=== PATIENT | female | born 1975 | race Caucasian/White ===

== ENCOUNTER 2019-12-21 17:33 | Inpatient (IN) | payer MEDICAID, SELFPAY ==
[~2019-12-21] VITALS: Ht 165.1 cm; Wt 72.1 kg
[2019-12-21] MEDS ORDERED: ACETAMINOPHEN ES 500 MG TABLET PO ONE (19:00)
[2019-12-21] MEDS ORDERED: IV NS 0.9% 1,000 ML BAG IV ONE (19:00)
--- NOTE | 2019-12-21 19:30 | NUR ---
ASSUMED CARE FOR PT AT THIS TIME. PT RESTING COMFORTABLY IN BED. IV INITIATED L FOREARM 20G. LABS DRAWN FROM SITE, CRIMINAL JUSTICE TEACHER AT BEDSIDE FOR COLLECTION. IV INTACT AND PATENT, PLACED ON SALINE LOCK. PT MEDICATED PER MD ORDER. WILL CONTINUE TO MONITOR
[2019-12-21] MEDS ORDERED: ACETAMINOPHEN ES 500 MG TABLET ONE (19:46)
[2019-12-21 19:58] LABS: BASOPHILS % (AUTO) 0.1 % (0.0-2.0); EOSINOPHILS % (AUTO) 2.6 % (0.0-6.0); HEMATOCRIT 28 % (33-45); HEMOGLOBIN 9.3 g/dL (11.5-14.8); LYMPHOCYTES # (AUTO) 1.9 /CMM (0.8-4.8); LYMPHOCYTES % (AUTO) 24.6 % (20.0-44.0); MEAN CORPUSCULAR HGB CONC 33 g/dl (31.0-36.0); MEAN CORPUSCULAR VOLUME 82 fL (82-100); MONOCYTES # (AUTO) 0.5 /CMM (0.1-1.30); MONOCYTES % (AUTO) 6.6 % (2.0-12.0); NEUTROPHILS % (AUTO) 66.1 % (43.0-81.0); PLATELET COUNT (AUTO) 319 /CMM (150-450); RED BLOOD CELL COUNT(AUTO) 3.38 MIL/uL (4.0-5.2); WHITE BLOOD COUNT (AUTO) 7.6 K/uL (4.3-11.0)
[2019-12-21 20:06] LABS: CALCIUM, SERUM 8.7 mg/dL (8.5-10.1); CREATININE 0.8 mg/dL (0.6-1.3); POTASSIUM 3.3 mmol/L (3.5-5.1)
[2019-12-21 20:12] LABS: ALBUMIN 2.7 g/dL (3.4-5.0); BILIRUBIN,TOTAL 0.3 mg/dL (0.2-1.0); TOTAL PROTEIN, SERUM 7.9 g/dL (6.4-8.2)
[2019-12-21] MEDS ORDERED: PIPERACILLIN /TAZOBACTAM 3.375 G in IV D5W 50 ML IV ONE (20:30)
[2019-12-21] MEDS ORDERED: VANCOMYCIN 1 GM in IV D5W 250 ML IV ONE (20:30)
--- NOTE | 2019-12-21 20:30 | NUR ---
DUPLEX TECH AT BEDSIDE
--- NOTE | 2019-12-21 20:35 | NUR ---
AUTO CLUB TRAVEL COUNSELOR AT BEDSIDE FOR BLOOD DRAW
[2019-12-21] MEDS ORDERED: PIPERACILLIN /TAZOBACTAM 3.375 G VIAL IV ONE (20:39)
[2019-12-21] MEDS ORDERED: VANCOMYCIN 1 GM VIAL ONE (20:39)
--- NOTE | 2019-12-21 20:56 | NUR ---
RADIOLOGY AT BEDSIDE FOR CXR
--- NOTE | 2019-12-21 21:28 | NUR ---
COVID SWAB COLLECTED AND SENT TO LAB
--- NOTE | 2019-12-21 21:33 | NUR ---
REPORT GIVEN TO KISHORE HAYNES FOR ANETA
--- NOTE | 2019-12-21 21:49 | NUR ---
PT TRANSFERRED PER ACLS PROTOCOL
[2019-12-21] MEDS ORDERED: ONDANSETRON HCL/PF 4 MG/2 ML VIAL IVP PRN (22:00)
[2019-12-21] MEDS ORDERED: VANCOMYCIN 1 GM in IV NS 0.9% 250 ML IV SCH (22:00)
[2019-12-21] MEDS ORDERED: Z GUARD REMEDY 2 OZ OINT TP PRN (22:00)
[2019-12-21] MEDS ORDERED: ACETAMINOPHEN 325 MG TABLET PO PRN (22:00)
[2019-12-21] MEDS ORDERED: MAG HYDROX/AL HYDROX/SIMETH 30 ML UDC PO PRN (22:00)
[2019-12-21] MEDS ORDERED: MAGNESIUM HYDROXIDE 30 ML UDC PO PRN (22:00)
[2019-12-21] MEDS ORDERED: HYDROCODONE/APAP 5/325MG TABLET PO PRN (22:00)
[2019-12-21] MEDS ORDERED: DEXTROSE 50%-WATER 50 ML DISP.SYRIN IV PRN (22:00)
[2019-12-21] MEDS: BLOOD SUGAR DIAGNOSTIC 1 EACH STRIP IN SCH (22:00)
[2019-12-21 22:27] VITALS: BP 96/52
[2019-12-21] MEDS ORDERED: POTASSIUM CHLORIDE 20 MEQ TAB.PRT.SR PO ONE (22:30)
--- NOTE | 2019-12-21 22:30 | NUR ---
RN ADMITTING NOTES RECEIVED REPORT FROM ROPE MAKING MACHINE OPERATOR PRAVEEN. Pt ARRIVED TO THE FLOOR VIA GURNEY AND WAS TRANSFERRED SAFELY TO BED BY STAFF. PER ER REPORT WAS TOLD THAT Pt IS HOMELESS. Pt IS A/OX2, WITH SOME NOTED POSSIBLE PSYCH ISSUES. Pt IS ABLE TO STATE NAME AND FULLY, AND IS AWARE THAT SHE IS IN A HOSPITAL SETTING, BUT IS UNCERTAIN OF THE NAME AND CITY SHE IS IN. Pt IS ALSO ABLE TO CITE THE CURRENT YEAR TO BE 2019, BUT WHEN ASKED WHO IS THE CURRENT PROGRAM COORDINATOR EXECUTIVE EDUCATION, Pt STATED THAT SHE IS. 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 WHEN ASKED IF SHE HAS ANY FAMILY MEMBERS, Pt SAID THAT SHE WISHES TO REACH FAMILY AND FRIENDS BUT DOES NOT KNOW ANYBODY'S NUMBER AT HEART, AND WANTS SOMEBODY TO FIND IT FOR HER. WILL SUGGEST FOR A POSSIBLE PSYCH EVAL FOR Pt. Pt IS A VERY POOR HISTORIAN. UNABLE TO STATE WHEN SHE HAD A LAST BM. UNABLE TO STATE FOR CERTAIN IF SHE HAS ANY ALLERGIES TO FOOD OR MEDS. ON TELE MONITOR. IV ACCESS ON LFA #20G, SL. NO S/S OF ACUTE DISTRESS OR SOB NOTED AT THIS TIME. Pt IS VERY SLEEPY AND KEEPS GOING IN AND OUT OF SLEEP DURING QUESTIONING. SAFETY MEASURES IN PLACE. BED LOW, LOCKED, HOB ELEVATED, SIDE RAILS UP, CALL LIGHT AND BEDSIDE TABLE WITHIN REACH. BED ALARM ON. WILL CONTINUE TO MONITOR Pt's CONDITION AND SAFETY THROUGHOUT THE NIGHT.
--- NOTE | 2019-12-21 23:30 | NUR ---
RN NOTES Pt REFUSED FOR PRIVATE AREAS TO BE CHECKED FOR SKIN ASSESSMENT. ONLY ALLOWED FOR PICTURES OF BILATERAL LOWER EXTREMITIES TO BE TAKEN. PER Pt STATEMENT SAID THERE ARE NO WOUNDS ON HER BUTTOCKS/SACRAL AREA.
[2019-12-22] VITALS: BP 95/44
[2019-12-22] MEDS ORDERED: PIPERACILLIN /TAZOBACTAM 4.5 G in IV D5W 50 ML IV SCH ×2
--- NOTE | 2019-12-22 | NUR ---
RN NOTES ACCUCHECK BG 219. ADMINISTERED 4UN OF INSULIN PER SLIDING SCALE. APPLE SAUCE PROVIDED SNACK.
[2019-12-22] MEDS: INSULIN REGULAR, HUMAN 100 UNIT/ML 3 ML VIAL SQ PRN ×5 (00:06→21:38)
[2019-12-22] MEDS ORDERED: PIPERACILLIN /TAZOBACTAM 2.25 G VIAL IV ONE (02:29)
[2019-12-22] MEDS ORDERED: ZOSYN IVPB 4.5 G in IV D5W 50ml IV ONE (02:30)
--- NOTE | 2019-12-22 02:33 | NUR ---
RN NOTES FOR X1 DOSE ORDER OF ZOSYN 4.5G, CHILD CARE CENTRE DIRECTOR HAD TO OVERRIDE MED IN [place]. NO 4.5G OF ZOSYN IS AVAILABLE, HAD TO GET TWO 2.25G ZOSYN TO HAVE TOTAL OF 4.5G.
[2019-12-22 04:00] VITALS: BP 95/44
[2019-12-22 06:42] LABS: BASOPHILS % (AUTO) 0.2 % (0.0-2.0); EOSINOPHILS % (AUTO) 2.5 % (0.0-6.0); HEMATOCRIT 27 % (33-45); LYMPHOCYTES # (AUTO) 1.2 /CMM (0.8-4.8); LYMPHOCYTES % (AUTO) 16.8 % (20.0-44.0); MEAN CORPUSCULAR HGB CONC 34 g/dl (31.0-36.0); MEAN CORPUSCULAR VOLUME 82 fL (82-100); MONOCYTES # (AUTO) 0.3 /CMM (0.1-1.30); MONOCYTES % (AUTO) 4.9 % (2.0-12.0); NEUTROPHILS # (AUTO) 5.4 /CMM (1.8-8.9); NEUTROPHILS % (AUTO) 75.6 % (43.0-81.0); PLATELET COUNT (AUTO) 278 /CMM (150-450); RED BLOOD CELL COUNT(AUTO) 3.26 MIL/uL (4.0-5.2); WHITE BLOOD COUNT (AUTO) 7.1 K/uL (4.3-11.0)
[2019-12-22 06:52] LABS: THYROID STIMULATING HORMONE 0.785 uIU/mL (0.358-3.74)
[2019-12-22 07:00] LABS: CALCIUM, SERUM 8.1 mg/dL (8.5-10.1); CREATININE 0.6 mg/dL (0.6-1.3); MAGNESIUM 1.7 mg/dL (1.8-2.4); PHOSPHORUS 3.1 mg/dL (2.5-4.9); POTASSIUM 3.6 mmol/L (3.5-5.1)
--- NOTE | 2019-12-22 07:10 | NUR ---
RN CLOSING NOTES NO SIGNIFICANT CHANGES IN Pt's CONDITION. NO S/S OF ACUTE DISTRESS OR SOB NOTED DURING THE NIGHT. Pt IS RESTING IN BED. ALL NEEDS MET AND ATTENDED TO. SAFETY MEASURES IN PLACE. ENDORSED TO DAYSHIFT RN FOR Pt's ANETA.
[2019-12-22] MEDS: BLOOD SUGAR DIAGNOSTIC 1 EACH STRIP IN SCH ×4 (07:30→21:35)
--- NOTE | 2019-12-22 07:30 | NUR ---
telecom network manager notes place a call to lab ,spoke to anne Siddiqi testing was received by them
[2019-12-22 08:00] VITALS: BP 96/60
--- NOTE | 2019-12-22 08:00 | NUR ---
TELE/RN OPENING NOTES RECEIVED PATIENT ON BED. DENIES ANY PAIN AT THIS TIME. NO APPARENT RESPIRATORY DISTRESS NOTED. IV ACCESS AT LEFT FOREARM # 20 G AT TKO PATENT AND INTACT. BED IN LOW AND LOCKED POSITION. CALL LIGHT WITHIN IN EASY REACH. WILL CONTINUE TO MONITOR.
[2019-12-22] MEDS ORDERED: FEE PK DOSING 1 MIN EA MC ONE (08:16)
[2019-12-22] MEDS: PANTOPRAZOLE 40 MG TABLET.DR PO SCH (08:29)
[2019-12-22] MEDS: ENOXAPARIN SODIUM 40 MG/0.4 ML DISP.SYRIN SQ SCH (08:34)
[2019-12-22] MEDS: VANCOMYCIN 1 GM in IV D5W 250 ML IV SCH ×2 (09:58→15:03)
--- NOTE | 2019-12-22 10:18 | NUR ---
follow up with lab while covid pending not showing on medithech per anne from lab they are working on it and confirmed they have specimen.
[2019-12-22] MEDS: Magnesium 1GM/D5W 100ML PREMIX 100 ML IV SCH ×2 (11:18→13:35)
[2019-12-22 12:00] VITALS: BP 103/64
[2019-12-22] MEDS: PIPERACILLIN /TAZOBACTAM 3.375 G in IV D5W 50 ML IV SCH ×3 (12:43→23:00)
[2019-12-22 16:00] VITALS: BP 107/62
--- NOTE | 2019-12-22 18:47 | NUR ---
TELE/RN CLOSING NOTES PATIENT ON BED. NO SIGN AND SYMPTOM OF PAIN NOTED. NO APPARENT RESPIRATORY DISTRESS NOTED. PATIENT IS ON TELE MONITOR SR - ST 93 - 108 BPM. IV ACCESS AT THE LEFT FOREARM # 20 G AT TKO PATENT AND INTACT. SEEN AND EXAMINED BY MD WITH ORDERS MADE AND CARRIED OUT. ALL DUE MEDICATION WAS GIVEN. CHECKED PATIENT EVERY 2 HOURS. FALL RISK. BED IN LOW POSITION AND LOCKED. CALL LIGHT WITHIN EASY REACH. WILL ENDORSED TO FOLEY ARTIST FOR ANETA. Addendum: 12/22/19 at 1854 by CHANTELLE ALEX RN ERROR
--- NOTE | 2019-12-22 18:54 | NUR ---
TELE/RN CLOSING NOTES PATIENT ON BED. NO SIGN AND SYMPTOM OF PAIN NOTED. NO APPARENT RESPIRATORY DISTRESS NOTED. PATIENT IS ON TELE MONITOR SR 82 BPM. IV ACCESS AT THE LEFT FOREARM # 20 G AT TKO PATENT AND INTACT. SEEN AND EXAMINED BY MD WITH ORDERS MADE AND CARRIED OUT. ALL DUE MEDICATION WAS GIVEN. CHECKED PATIENT EVERY 2 HOURS. FALL RISK. BED IN LOW POSITION AND LOCKED. CALL LIGHT WITHIN EASY REACH. WILL ENDORSED TO EVENING ANCHOR FOR ANETA..
--- NOTE | 2019-12-22 19:00 | NUR ---
RN OPENING NOTES: RECEIVED PATIENT, AWAKE, AND VERBAL. NO RESPIRATORY DISTRESS. NO C/O PAIN. ON STATION MASTER, NSR, HR 80s. SAFETY PRECAUTIONS IMPLEMENTED. BED LOCKED AND LOW POSITION. SIDE RAILS X 2 UP. HOB ELEVATED. CALL LIGHT WITHIN REACH. WILL CONT. TO MONITOR.
[2019-12-22 20:00] VITALS: BP 132/72
[2019-12-23] VITALS: BP 104/60
[2019-12-23] MEDS: VANCOMYCIN 1 GM in IV D5W 250 ML IV SCH ×3 (00:04→16:38)
[2019-12-23 04:00] VITALS: BP 108/65
[2019-12-23] MEDS: PIPERACILLIN /TAZOBACTAM 3.375 G in IV D5W 50 ML IV SCH ×2 (05:20→13:00)
[2019-12-23 06:29] LABS: BASOPHILS % (AUTO) 0.5 % (0.0-2.0); EOSINOPHILS % (AUTO) 3.5 % (0.0-6.0); HEMATOCRIT 27 % (33-45); HEMOGLOBIN 8.8 g/dL (11.5-14.8); LYMPHOCYTES # (AUTO) 1.1 /CMM (0.8-4.8); LYMPHOCYTES % (AUTO) 26.8 % (20.0-44.0); MEAN CORPUSCULAR HGB CONC 33 g/dl (31.0-36.0); MEAN CORPUSCULAR VOLUME 82 fL (82-100); MONOCYTES # (AUTO) 0.2 /CMM (0.1-1.30); MONOCYTES % (AUTO) 5.6 % (2.0-12.0); NEUTROPHILS # (AUTO) 2.7 /CMM (1.8-8.9); NEUTROPHILS % (AUTO) 63.6 % (43.0-81.0); PLATELET COUNT (AUTO) 274 /CMM (150-450); RED BLOOD CELL COUNT(AUTO) 3.21 MIL/uL (4.0-5.2); WHITE BLOOD COUNT (AUTO) 4.2 K/uL (4.3-11.0)
[2019-12-23 06:45] LABS: CREATININE 0.7 mg/dL (0.6-1.3); MAGNESIUM 1.7 mg/dL (1.8-2.4)
--- NOTE | 2019-12-23 06:58 | NUR ---
RN CLOSING NOTES: PATIENT IN BED, ASLEEP, EASILY AROUSABLE. NO SOB. NO C/O PAIN. STABLE CONDITION DURING SHIFT. WILL ENDORSE TO AM SHIFT RN FOR CONTINUITY OF CARE.
--- NOTE | 2019-12-23 07:10 | NUR ---
RN OPENING NOTES RECEIVED PATIENT ON BED COMFORTABLY.PATIENT ON TELE READING NSR. DENIES ANY PAIN AT THIS TIME. ROOM AIR AND NO APPARENT RESPIRATORY DISTRESS NOTED. IV ACCESS AT LEFT FOREARM # 20 G AT TKO PATENT AND INTACT. BED IN LOW AND LOCKED POSITION. CALL LIGHT WITHIN IN EASY REACH. WILL CONTINUE TO MONITOR
[2019-12-23] MEDS: BLOOD SUGAR DIAGNOSTIC 1 EACH STRIP IN SCH ×5 (07:30→22:06)
[2019-12-23 08:00] VITALS: BP 105/63
--- NOTE | 2019-12-23 08:00 | NUR ---
SPOKE TO PHARMACY [facility], THROUGH 17, PER PHARMACIST CANDI TO GIVE VANCO @ [phone] AND 1600.
[2019-12-23] MEDS: PANTOPRAZOLE 40 MG TABLET.DR PO SCH (08:09)
[2019-12-23] MEDS: ENOXAPARIN SODIUM 40 MG/0.4 ML DISP.SYRIN SQ SCH (08:11)
[2019-12-23] MEDS: INSULIN REGULAR, HUMAN 100 UNIT/ML 3 ML VIAL SQ PRN ×3 (09:20→22:05)
[2019-12-23] MEDS: Magnesium 1GM/D5W 100ML PREMIX 100 ML IV SCH ×2 (10:12→11:28)
[2019-12-23 12:00] VITALS: BP 124/60
[2019-12-23 16:00] VITALS: BP 126/77
--- NOTE | 2019-12-23 19:20 | NUR ---
RN CLOSING NOTES: WILL ENDORSED PT TO PM NURSE. PATIENT IN BED ASLEEP. NO SOB. NO C/O PAIN. STABLE CONDITION DURING SHIFT..
[2019-12-23 20:00] VITALS: BP 102/59
--- NOTE | 2019-12-23 20:00 | NUR ---
RN OPENING NOTE RECEIVED PT IN BED RESTING COMFORTABLY. PT A/A/OX3. THERE IS NO S/S OF DISTRESS. PT ON RA SATING 99%. NO RESPIRATORY DISTRESS NOTED. PT HAS IV ACCESS 20 G RFA S/L, FLUSHES WELL AND PATENT. SAFETY MEASURES IN PLACE CALL LIGHT IN REACH, BED AT LOWEST POSITION AND LOCKED,SIDE RAILS UP X2. WILL CONTINUE TO MONITOR.
[2019-12-23] MEDS: CEFTRIAXONE 1 G in IV D5W 50 ML IV SCH (20:23)
[2019-12-24] VITALS: BP 101/61
[2019-12-24] MEDS: VANCOMYCIN 1 GM in IV D5W 250 ML IV SCH ×3 (00:15→15:38)
[2019-12-24 04:00] VITALS: BP 101/61
--- NOTE | 2019-12-24 07:10 | NUR ---
CLIENT FINANCE ANALYST NOTES RECEIVED PATIENT ASLEEP IN BED, ARUOSABLE TO VERBAL AND TACTILE STIMULI. HOB ELEVATED. NO SOB. DENIES ANY C/O PAIN NOR DISCOMFORT AT THIS TIME. LEFT FA # 20 SL INTACT AND PATENT. WOUND CARE TO RIGHT FOOT AND LEFT FOOT RECENTLY DONE BY [facility] SHIFT NURSE. FOOT DRESSING RE-ENFORCED. ABLE TO VERBALIZE NEEDS. BED IN LOWEST POSITION, LOCKED. CALL LIGHT WITHIN REACH.
[2019-12-24 07:45] LABS: BASOPHILS % (AUTO) 0.3 % (0.0-2.0); CALCIUM, SERUM 8.3 mg/dL (8.5-10.1); CREATININE 0.7 mg/dL (0.6-1.3); EOSINOPHILS % (AUTO) 2.7 % (0.0-6.0); HEMATOCRIT 29 % (33-45); HEMOGLOBIN 9.7 g/dL (11.5-14.8); LYMPHOCYTES # (AUTO) 1.3 /CMM (0.8-4.8); MAGNESIUM 1.8 mg/dL (1.8-2.4); MEAN CORPUSCULAR HGB CONC 33 g/dl (31.0-36.0); MEAN CORPUSCULAR VOLUME 83 fL (82-100); MONOCYTES # (AUTO) 0.4 /CMM (0.1-1.30); MONOCYTES % (AUTO) 8.3 % (2.0-12.0); NEUTROPHILS # (AUTO) 2.5 /CMM (1.8-8.9); NEUTROPHILS % (AUTO) 57.7 % (43.0-81.0); PHOSPHORUS 4.3 mg/dL (2.5-4.9); PLATELET COUNT (AUTO) 333 /CMM (150-450); POTASSIUM 3.8 mmol/L (3.5-5.1); RED BLOOD CELL COUNT(AUTO) 3.54 MIL/uL (4.0-5.2); WHITE BLOOD COUNT (AUTO) 4.2 K/uL (4.3-11.0)
[2019-12-24 08:00] VITALS: BP_SYST 96; BP_SYST 99; BP_DIAS 47; BP_DIAS 60
[2019-12-24] MEDS: PANTOPRAZOLE 40 MG TABLET.DR PO SCH (08:08)
[2019-12-24] MEDS: ENOXAPARIN SODIUM 40 MG/0.4 ML DISP.SYRIN SQ SCH (08:09)
[2019-12-24] MEDS: BLOOD SUGAR DIAGNOSTIC 1 EACH STRIP IN SCH ×4 (08:23→21:39)
[2019-12-24] MEDS: INSULIN REGULAR, HUMAN 100 UNIT/ML 3 ML VIAL SQ PRN ×4 (08:27→21:41)
--- NOTE | 2019-12-24 11:03 | NUR ---
WOUND CARE CONSULT: REVIEWED CHART, NURSING DOCUMENTATION AND PHOTOS WHICH SHOW FOOT WOUNDS PRESENT ON ADMISSION. RECOMMEND DPM CONSULT. DR CHING NOTIFIED OF CONSULT REQUEST. CURRENT TAZ SCORE IS 20. WILL SEE PRN.
[2019-12-24 12:00] VITALS: BP 114/56
--- NOTE | 2019-12-24 12:00 | NUR ---
SPINDLE REPAIRER NOTES PATIENT SEEN AND EXMAINED BY DR. OVIEDO (PODIATRY WOUND)
--- NOTE | 2019-12-24 12:28 | NUR ---
LATHE OPERATOR CONTACT LENS NOTES OBSERVED PATIENT TALKING TO SELF AND TALKING TO SOMEONE THAT IS NOT THERE.
--- NOTE | 2019-12-24 14:12 | NUR ---
TEXTED DR. BIANCHI FOR MRI APPROVAL.
[2019-12-24 16:00] VITALS: BP 117/77
--- NOTE | 2019-12-24 18:32 | NUR ---
ENERGY CONSERVATION SPECIALIST NOTES PATIENT RESTING COMFORTABLY IN BED, WATCHING TV/ HOB ELEVATED. NO S/S OF RESPIRATORY DISTRESS. DENIES ANY C/O PAIN NOR DISCOMFORT AT THIS TIME. LEFT FA # 20 SL INTACT AND PATENT. REMAIN ON TELEMONITORING SR: 70. ARE MEAL WITH GOOD PO INTAKE AND REQUESTED SNACKS IN BETWEEN MEALS, TAKEN WELL. ABLE TO VERBALIZE NEEDS. BED IN LOWEST POSITION, LOCKED. CALL LIGHT WITHIN REACH. IN NO APPARENT DISTRESS.
--- NOTE | 2019-12-24 19:30 | NUR ---
RN OPENING NOTE RECEIVED PATIENT IN BED RESTING,ALERT ORIENTED X2 VERBALLY RESPONSIVE,ON RA 99% ON TELE MONITORING HR 80s,NO SOB NOT ACUTE DISTRESS NOTED,AT THIS TIME,BED IN LOW POSITION LOCKED IV SITE IS ON RIGHT FOREARM INTACT CONTINUE TO MONITOR.
[2019-12-24 20:00] VITALS: BP 105/63
[2019-12-24] MEDS: CEFTRIAXONE 1 G in IV D5W 50 ML IV SCH (20:09)
[2019-12-24] MEDS: VANCOMYCIN 0.75 GM in IV D5W 250 ML IV SCH (23:42)
[2019-12-25] VITALS (8 sets, daily range): BP systolic 101–153; BP diastolic 57–71
--- NOTE | 2019-12-25 05:20 | NUR ---
RN NOTE PATIENT REFUSED TO BE CHANGED WOUND DRESSING AFTER 3 TIMES ATTEMPTS,AFTER EXPLAINED 3 TIMES BENEFITS OF WOUND DRESS CHANGING ,SHE STILL REFUSED ALSO SHE REFUSED TO HAVE TELE MONITORING, NOT LET NURSE TO TOUCH TO BE CONNECTED.
[2019-12-25 06:15] LABS: BASOPHILS % (AUTO) 0.4 % (0.0-2.0); EOSINOPHILS % (AUTO) 2.6 % (0.0-6.0); HEMATOCRIT 30 % (33-45); LYMPHOCYTES # (AUTO) 1.5 /CMM (0.8-4.8); LYMPHOCYTES % (AUTO) 33.2 % (20.0-44.0); MEAN CORPUSCULAR HGB CONC 34 g/dl (31.0-36.0); MEAN CORPUSCULAR VOLUME 82 fL (82-100); MONOCYTES # (AUTO) 0.3 /CMM (0.1-1.30); MONOCYTES % (AUTO) 6.7 % (2.0-12.0); NEUTROPHILS # (AUTO) 2.6 /CMM (1.8-8.9); NEUTROPHILS % (AUTO) 57.1 % (43.0-81.0); PLATELET COUNT (AUTO) 326 /CMM (150-450); WHITE BLOOD COUNT (AUTO) 4.5 K/uL (4.3-11.0)
[2019-12-25 06:47] LABS: CREATININE 0.7 mg/dL (0.6-1.3); MAGNESIUM 1.8 mg/dL (1.8-2.4); PHOSPHORUS 4.1 mg/dL (2.5-4.9); POTASSIUM 3.9 mmol/L (3.5-5.1)
--- NOTE | 2019-12-25 06:54 | NUR ---
RN CLOSING NOTE PATIENT REMAINS IN STABLE CONDITION,ALERT ORIENTED X2 VERBALLY RESPONSIVE, ON ROOM AIR,BREATHING IS EVEN AND UNLABORED NO SOB NOT ACUTE DISTRESS NOTED,ALL DUE MEDS GIVEN MD ORDERED,KEPT CLEAN AND DRY ALL THE TIME,KEPT BED IN LOWEST POSITION, KEPT LOCKED ALL THE ZANE,ALL NEEDS MET,WILL ENDORSE TO NEXT COMING SHIFT FOR CONTINUATION OF CARE.
--- NOTE | 2019-12-25 07:26 | NUR ---
EMTS OPENING NOTE RECEIVED PATIENT IN BED RESTING COMFORTABLY. PATIENT IN NO ACUTE DISTRESS. NO SOB NOTED. PATIENT BREATHING IS EVEN AND UNLABORED. PATIENT ON CARDIAC MONITORING READING SINUS RHYTHM HR 75. PATIENT BED ALARM IS ON. PATIENT SAFETY PRECAUTIONS IN PLACE. PATIENT BED IS LOCKED AND IN LOWEST POSITION. CALL LIGHT WITHIN REACH. WILL CONTINUE TO MONITOR.
[2019-12-25] MEDS: BLOOD SUGAR DIAGNOSTIC 1 EACH STRIP IN SCH ×6 (08:24→22:00)
[2019-12-25] MEDS: INSULIN REGULAR, HUMAN 100 UNIT/ML 3 ML VIAL SQ PRN ×3 (08:27→21:15)
--- NOTE | 2019-12-25 08:29 | NUR ---
SOFTWARE TOOLS ENGINEERCOMMUTATOR INSPECTOR NOTE TRANSFERRED PATIENT TO [facility] 2 FLOOR ROOM 200. PATIENT IN NO ACUTE DISTRESS. NO SOB NOTED. REPORT GIVEN TO ALLISON NOVAK AND ENDORSED ALL CARE TO ALLISON NOVAK FOR ANETA.
--- NOTE | 2019-12-25 08:35 | NUR ---
RN NOTES RECEIVED PATIENT FROM [facility]IA [facility]ITAL BED. A/O X2. ABLE TO MAKE NEEDS KNOWN, NO SIGNS DISTRESS NOTED AT THIS TIME. ACCOMPANIED BY KISHORE REMY. PATIENT REFUSED BELONGINGS CHECKED. SAFETY MEASURES INITIATED, BED PLACE IN LOWEST LOCKED POSITION WITH SIDE RAILS UP X3, CALL LIGHT WITHIN REACH. WILL CONTINUE TO MONITOR.
[2019-12-25] MEDS: ENOXAPARIN SODIUM 40 MG/0.4 ML DISP.SYRIN SQ SCH (08:47)
[2019-12-25] MEDS: VANCOMYCIN 0.75 GM in IV D5W 250 ML IV SCH ×2 (08:47→15:56)
[2019-12-25] MEDS: PANTOPRAZOLE 40 MG TABLET.DR PO SCH (08:47)
--- NOTE | 2019-12-25 09:00 | NUR ---
RN NOTES PATIENT REMOVED IV ACCESS, REFUSED RE-INSERTION, EXPLAINED RISKS AND BENEFITS BUT PATIENT REFUSED, SHE SAID TO INSERT IT LATER, PER PATIENT "I DON'T WANT TO BE BOTHERED RIGHT NOW". WILL CONTINUE TO MONITOR.
--- NOTE | 2019-12-25 10:53 | NUR ---
SW CONSULT: Venetian Blind Washer reviewed chart and consulted with pt's nurse, Dyllan. Per RN, pt has been observed talking to herself. Venetian Blind Washer conducted a social media coordinator consult to address pt's homeless status. Upon assessment of her current living situation, pt reported she is currently on a "mission" with the [employer], which allows her to travel all over [facility], and that is why she does not have a set home. Pt also reported she lives in a "castle" with her friends as she is the "[place] of [place]." Pt was delusional and could not provide straight answers to the assessment questions. Pt requested for SW to help her find her family and "open a case," but could not tell the SW where her family was, who her family consisted of, and asked SW to "figure that out for her." Pt reported a history of alcohol use. Pt reported she drinks 20 oz beers "occasionally," and her last time drinking was 4-5 days ago before her hospital admission. Pt denied any drug use. 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 SW observed a walker in the pt's room; pt reported she currently uses a walker. SW observed the pt talking to something/someone that is not visible and responding to internal stimuli. Pt reported she does not have a social or familial support system aside from her friends and family that live in "another dimension." SW provided Homeless Resources Related to COVID-19 and additional community resources in the [facility]. Pt signed Homeless Waiver; filed in pt's chart. EDUARDO consulted with pt's nurse, Dyllan regarding pt's mental state and ongoing delusions. Dyllan indicated he will proceed with requesting a psychiatric consult for the pt. Nca Certified Concierge to be available for support as needed.
--- NOTE | 2019-12-25 11:30 | NUR ---
RN NOTES SEEN AND EXAMINED BY DR. ESPINOZA, PER ALEXIS NEEDS PSYCH CONSULT, FAXED FACESHEET TO [employer], HOME SALES SERVICE PROFESSIONAL IS DR. CARTWRIGHT. WILL CONTINUE TO MONITOR.
--- NOTE | 2019-12-25 12:11 | NUR ---
RN NOTES SEEN AND EXAMINED BY AMANDA OVIEDO, REFUSED ASSESSMENT OF THE FOOT AND DRESSING CHANGED. WILL CONTINUE TO MONITOR.
--- NOTE | 2019-12-25 14:40 | NUR ---
RN NOTES SEEN AND EXAMINED BY DR. CARTWRIGHT, ORDER OF RISPERDAL 1MG BID BY MOUTH. ORDERS MADE AND CARRIED OUT. WILL CONTINUE TO MONITOR.
[2019-12-25] MEDS: risperiDONE 1 MG TABLET PO SCH (16:34)
--- NOTE | 2019-12-25 18:34 | NUR ---
RN NOTES PATIENT IN BED RESTING COMFORTABLY IN MODERATE HIGH BACK REST. A/O X2. ABLE TO MAKE NEEDS KNOWN, NO IV ACCESS, REFUSED BS CHECK, EXPLAINED RISKS AND BENEFITS BUT STILL REFUSED, NOTED WITH AGGRESSIVE BEHAVIOR AND TALKING TO HERSELF. MD MADE AWARE. SAFETY MEASURES IN PLACE, BED PLACE IN LOWEST LOCKED POSITION WITH SIDE RAILS UP X3, CALL LIGHT WITHIN REACH. WILL CONTINUE TO MONITOR.
--- NOTE | 2019-12-25 18:59 | NUR ---
CRISTINE AWAN. ORDERED CIPRO 500 BID PO AND ZYVOX 600 MG BID PO, ORDERS MADE AND CARRIED OUT.
--- NOTE | 2019-12-25 19:05 | NUR ---
RN OPENING NOTES Received patient asleep on bed, on RA, no SOB/respiratory distress noted at this time. Pt was refusing peripheral IV reinsertion, MD aware. Kept on bed comfortable. Call light within easy reach. Will continue to monitor accordingly.
[2019-12-25] MEDS: LINEZOLID 600 MG TABLET PO SCH (21:00)
[2019-12-25] MEDS: CIPROFLOXACIN HCL 500 MG TABLET PO SCH (21:00)
[2019-12-25] MEDS: ZOLPIDEM TARTRATE 5 MG TABLET PO PRN (21:01)
--- NOTE | 2019-12-25 21:46 | NUR ---
RN NOTES 2109 - Pt refused blood sugar check at this time. Pt claimed she has a lot of pain all day already. Offered medications to pain, patient refused, claimed she will be ok with resting. Will continue to monitor accordingly.
--- NOTE | 2019-12-26 06:30 | NUR ---
RN CLOSING NOTES Patient awake on bed resting, denies any discomfort at this time. Pt was noted able to ambulated to bathroom with walker, independently. All nursing needs attended. Due meds given as ordered. No new unusualities noted at this time. Endorsed.
[2019-12-26 06:52] LABS: CALCIUM, SERUM 8.3 mg/dL (8.5-10.1); CREATININE 0.8 mg/dL (0.6-1.3); MAGNESIUM 1.8 mg/dL (1.8-2.4); PHOSPHORUS 3.7 mg/dL (2.5-4.9); POTASSIUM 3.8 mmol/L (3.5-5.1)
[2019-12-26 06:55] LABS: BASOPHILS % (AUTO) 0.4 % (0.0-2.0); EOSINOPHILS % (AUTO) 2.7 % (0.0-6.0); HEMATOCRIT 30 % (33-45); HEMOGLOBIN 10.1 g/dL (11.5-14.8); LYMPHOCYTES # (AUTO) 1.7 /CMM (0.8-4.8); LYMPHOCYTES % (AUTO) 34.8 % (20.0-44.0); MEAN CORPUSCULAR HGB CONC 33 g/dl (31.0-36.0); MEAN CORPUSCULAR VOLUME 83 fL (82-100); MONOCYTES # (AUTO) 0.4 /CMM (0.1-1.30); MONOCYTES % (AUTO) 7.4 % (2.0-12.0); NEUTROPHILS # (AUTO) 2.6 /CMM (1.8-8.9); NEUTROPHILS % (AUTO) 54.7 % (43.0-81.0); PLATELET COUNT (AUTO) 302 /CMM (150-450); RED BLOOD CELL COUNT(AUTO) 3.68 MIL/uL (4.0-5.2); WHITE BLOOD COUNT (AUTO) 4.7 K/uL (4.3-11.0)
--- NOTE | 2019-12-26 07:28 | NUR ---
rn notes patient received on room air, no sob noted, a/o x2, talking to self. no s/s of pain at this time. bed at the lowest setting, call light within reach, side rails up x2.
[2019-12-26] MEDS: PANTOPRAZOLE 40 MG TABLET.DR PO SCH (08:29)
[2019-12-26] MEDS: CIPROFLOXACIN HCL 500 MG TABLET PO SCH ×2 (08:29→21:12)
[2019-12-26] MEDS: LINEZOLID 600 MG TABLET PO SCH ×2 (08:29→21:12)
[2019-12-26] MEDS: risperiDONE 1 MG TABLET PO SCH ×2 (08:29→16:34)
[2019-12-26] MEDS: ENOXAPARIN SODIUM 40 MG/0.4 ML DISP.SYRIN SQ SCH (08:31)
[2019-12-26] MEDS ORDERED: LINEZOLID 600 MG TABLET PO SCH (09:00)
[2019-12-26] MEDS ORDERED: CIPROFLOXACIN HCL 250 MG TABLET PO SCH (09:00)
[2019-12-26] MEDS: BLOOD SUGAR DIAGNOSTIC 1 EACH STRIP IN SCH ×3 (11:14→21:12)
[2019-12-26] MEDS: INSULIN REGULAR, HUMAN 100 UNIT/ML 3 ML VIAL SQ PRN (11:20)
[2019-12-26 16:00] VITALS: BP 100/60
--- NOTE | 2019-12-26 17:38 | NUR ---
rn notes patient remains no room air, still talks to herself and had psych MD come over and assess. R big toe cannot be assessed due to patient refusing. Patient also refused blood sugar checks. Podiatry unable to talk to patient due to her mental capacity at this time. Plan is to continue ABX and have a definite plan. Bed at the lowest setting, call light within reach, side rails up x2.
[2019-12-26 20:47] VITALS: BP 94/28
[2019-12-26 20:50] VITALS: BP_DIAS 58
[2019-12-26] MEDS: ZOLPIDEM TARTRATE 5 MG TABLET PO PRN (21:44)
--- NOTE | 2019-12-26 22:00 | NUR ---
MS RN NOTES PT REFUSED TO HAVE BS CHECKED. EXPLAINED TO PT IMPORTANCE OF BS CHECK IN HER POC BUT PT STILL REFUSED. WILL CONTINUE TO MONITOR.
--- NOTE | 2019-12-27 06:30 | NUR ---
MS RN NOTES AWAKE & RESPONSIVE. NOT IN ANY DISTRESS. NO SOB NOTED. DENIES ANY PAIN OR DISCOMFORT AT THIS TIME. MONITORED ACCORDINGLY. CALL LIGHT WITHIN REACH. BED IN LOWEST POSITION. SR UP X 2 FOR SAFETY. WILL ENDORSE TO NEXT SHIFT.
--- NOTE | 2019-12-27 07:10 | NUR ---
rn notes patient received on room air, no sob noted, shows no s/s of pain at this time. A/o X2 and is able to walk with good balance. Plan is to wait for placement. Refusing blood sugar checks. bed at the lowest setting, call light within reach, side rails up x2.
[2019-12-27] MEDS: BLOOD SUGAR DIAGNOSTIC 1 EACH STRIP IN SCH ×4 (07:14→22:00)
[2019-12-27] MEDS: risperiDONE 1 MG TABLET PO SCH ×2 (08:13→16:21)
[2019-12-27] MEDS: PANTOPRAZOLE 40 MG TABLET.DR PO SCH (08:13)
[2019-12-27] MEDS: LINEZOLID 600 MG TABLET PO SCH ×2 (08:13→22:24)
[2019-12-27] MEDS: CIPROFLOXACIN HCL 500 MG TABLET PO SCH ×2 (08:13→22:25)
[2019-12-27] MEDS: ENOXAPARIN SODIUM 40 MG/0.4 ML DISP.SYRIN SQ SCH (08:14)
--- NOTE | 2019-12-27 12:54 | NUR ---
HOP WORKER consulted with pt's caser shoe parts Ilda who consulted with pt's RN Rose. Per RN Rose, pt is a poor historian, unable to provide any meaningful information at this time. Pt is refusing all care but is taking her medications. Pt has been seen by psychiatrist Dr. Pete. Per Dr. Pete, pt will require a board and care facility with wound care. sales marketing manager Ilda to look into a facility for the pt. Hog Ringer is available for support as needed.
[2019-12-27 16:00] VITALS: BP 111/74
--- NOTE | 2019-12-27 17:27 | NUR ---
rn notes patient remains on room air, no sob noted, refuses blood sugar checks and denies pain at this time. BRP and has good balance. refuses anyone to check her toe. Plan is to have patient on a board and care when cleared by psych. Risperedol increased to 3 mg BID. Patient able to swallow medications. Bed at the lowest setting, call light within reach, side rails up x2.
[2019-12-27 20:00] VITALS: BP 104/61
--- NOTE | 2019-12-27 20:20 | NUR ---
MS2RN AT INITIAL ROUNDING AT 1930, PATIENT WAS AWAKE, ALERT, ORIENTED, COMFORTABLE, NO C/O PAIN, NO DISTRESS NOTED, CALL LIGHT IN REACH. WILL MONITOR.
--- NOTE | 2019-12-27 22:28 | NUR ---
MS2/RN REFUSED ACCU CHECK, EXPLAINED IMPORTANCE OF CHECKING BLOOD SUGAR, VERBALIZED UNDERSTANDING BUT STILL REFUSED. WILL MONITOR.
--- NOTE | 2019-12-28 00:56 | NUR ---
MS2/RN PATIENT IS SLEEPING AT THIS TIME, APPEAR COMFORTABLE, NO SIGNS OF DISTRESS NOTED, CALL LIGHT IN REACH. WILL CONTINUE TO MONITOR.
--- NOTE | 2019-12-28 06:12 | NUR ---
MS2/RN PATIENT IS AWAKE AT THIS TIME, ALERT AND ORIENTED, COMFORTABLE, NO C/O PAIN, NO DISTRESS NOTED, CALL LIGHT IN REACH, ALL NEEDS ATTENDED AT THIS TIME, WILL CONTINUE TO MONITOR.
--- NOTE | 2019-12-28 06:49 | NUR ---
MS2/RN REFUSED ACCU CHECK.
[2019-12-28] MEDS: BLOOD SUGAR DIAGNOSTIC 1 EACH STRIP IN SCH ×2 (07:05→11:42)
[2019-12-28 07:19] LABS: BASOPHILS % (AUTO) 0.2 % (0.0-2.0); EOSINOPHILS % (AUTO) 2.3 % (0.0-6.0); HEMATOCRIT 32 % (33-45); HEMOGLOBIN 10.5 g/dL (11.5-14.8); LYMPHOCYTES # (AUTO) 1.8 /CMM (0.8-4.8); LYMPHOCYTES % (AUTO) 35.4 % (20.0-44.0); MEAN CORPUSCULAR HGB CONC 33 g/dl (31.0-36.0); MEAN CORPUSCULAR VOLUME 84 fL (82-100); MONOCYTES # (AUTO) 0.4 /CMM (0.1-1.30); NEUTROPHILS # (AUTO) 2.8 /CMM (1.8-8.9); NEUTROPHILS % (AUTO) 55.1 % (43.0-81.0); PLATELET COUNT (AUTO) 259 /CMM (150-450); RED BLOOD CELL COUNT(AUTO) 3.75 MIL/uL (4.0-5.2)
[2019-12-28 07:26] LABS: CALCIUM, SERUM 8.4 mg/dL (8.5-10.1); CREATININE 0.8 mg/dL (0.6-1.3); MAGNESIUM 1.9 mg/dL (1.8-2.4); PHOSPHORUS 4.3 mg/dL (2.5-4.9); POTASSIUM 3.9 mmol/L (3.5-5.1)
--- NOTE | 2019-12-28 08:00 | NUR ---
RN NOTES RECEIVED PATIENT SITTING IN THE BED A/0X2/3, DELUSIONAL , INTERACTING INTERNAL STIMULI, NO ACUTE RESPIRATORY DISTRESS, PATIENT UNKEMPT, REFUSED PAIN AT THIS TIME, ALSO HAS BLE WOUND DRESSING INTACT. ASKING SHOWER TO TAKE. PATIENT AMBULATORY USING WALKER. SAFETY PRECAUTION MAINTAINED ALL THE TIME.
[2019-12-28 08:09] VITALS: BP 103/64
[2019-12-28] MEDS: risperiDONE 1 MG TABLET PO SCH (09:03)
[2019-12-28] MEDS: CIPROFLOXACIN HCL 500 MG TABLET PO SCH (09:03)
[2019-12-28] MEDS: LINEZOLID 600 MG TABLET PO SCH (09:03)
[2019-12-28] MEDS: PANTOPRAZOLE 40 MG TABLET.DR PO SCH (09:03)
[2019-12-28] MEDS: ENOXAPARIN SODIUM 40 MG/0.4 ML DISP.SYRIN SQ SCH (09:11)
--- NOTE | 2019-12-28 09:17 | NUR ---
rn notes administered narco 5/325 mg po prn for right toe pain 12/04 per patient request, v/s taken bp 103/64, p84, r-19. continued monitoring.
--- NOTE | 2019-12-28 11:42 | NUR ---
RN NOTES PATIENT REFUSING TO GO B&C AT THIS TIME NOTIFIED CASE MANAGEMENT, AND HOSPITALIST Dr. ESPINOZA. PER HOSPITALIS TO ORDER LET PAIENT GO WITH SIGNING AMA, AND SHE WILLING GIVE PATIENT ANTIBIOTICS TO ADDRESSOGRAPH OPERATOR FROM PHARMACY.PATIENT ASKING CLOTHES AND SHOES.
[2019-12-28] MEDS ORDERED: METF-440 PO (12:31)
[2019-12-28] MEDS ORDERED: RISP1TAB7 PO (12:31)
[2019-12-28] MEDS ORDERED: CIPR500T5 PO (12:31)
--- NOTE | 2019-12-28 12:49 | NUR ---
MANAGER OF PATIENT NOTES PATIENT AMA AT THIS TIME. EXPLAINED PATIENT RISKS AND CONSEQUENCES INVOLVED IN LIVING THE HOSPITAL AT THIS TIME. PATIENT STATE "I WOULD LIKE TO GO NOW, I WILL TAKE CARE MY SELF". PER HOSPITALIST Dr ESPINOZA DECIDED TO GIVE HER ANTIBIOTICS TO GET FROM [facility]. PATIENT SIGN BELONGING, AND HOMELESS WAIVER FORM.REFUSED DRESSING CHANGE , AND BLOOD GLUCOSE LEVEL. ESCORTED PATIENT TO THE LOBBY TO SAFETY.
== END 2019-12-28 12:49 | disposition left against medical advice (07) | DRG 344 ==
LOC: ER 17:35 → TELE1 20:46 → MEDSG2 12-25 08:37
PROVIDERS: ATTEND Student in an Organized Health Care Education/Training Program
DX: E11.69 Type 2 diabetes mellitus with other specified complication (principal); E87.1 Hypo-osmolality and hyponatremia; L03.115 Cellulitis of right lower limb; M86.8X7 Other osteomyelitis, ankle and foot; E46 Unspecified protein-calorie malnutrition; R78.81 Bacteremia; E11.65 Type 2 diabetes mellitus with hyperglycemia; E11.621 Type 2 diabetes mellitus with foot ulcer; Z68.26 Body mass index [BMI] 26.0-26.9, adult; E87.6 Hypokalemia; Z59.0 Homelessness; D64.9 Anemia, unspecified; Z91.14 Patient's other noncompliance with medication regimen; F25.9 Schizoaffective disorder, unspecified; B95.8 Unspecified staphylococcus as the cause of diseases classified elsewhere; E11.622 Type 2 diabetes mellitus with other skin ulcer; L97.519 Non-pressure chronic ulcer of other part of right foot with unspecified severity; F29 Unspecified psychosis not due to a substance or known physiological condition; E88.09 Other disorders of plasma-protein metabolism, not elsewhere classified; S92.401D Displaced unspecified fracture of right great toe, subsequent encounter for fracture with routine healing; X58.XXXD Exposure to other specified factors, subsequent encounter
CPT/HCPCS: 36415; 71045-TC; 73630-TC; 73718-TC; 80048-TC; 80053-TC; 80061-TC; 80202-TC; 82962-TC; 83735-TC; 84100-TC; 84443-TC; 84703-TC; 85025-TC; 85730-TC; 87040-TC; 87081-TC; 93970-TC; 93971-TC; 97116-TC; 97530-TC; A6253; A6403; G0378; J0696; J1650; J1815; J2543; J3370; J3475; J3490; J7030; J7040; J7050; J7060; U0003-CS